=== PATIENT | male | born 1980 | race Caucasian/White ===

== ENCOUNTER → 2017-05-04 | Outpatient (CLI) | payer OTHER ==
--- NOTE | 2017-05-04 16:32 | MR ---
MRI THORACIC SPINE: 05/04/2017 CLINICAL HISTORY: Thoracic back pain for years with no recent injury or prior surgery. TECHNIQUE: Multiplanar, multisequence imaging of the cervical spine is performed without intravenous contrast. COMPARISON: None. FINDINGS: The thoracic and upper lumbar spinal cord is normal in course, caliber, and signal. Thoraci c vertebral alignment is anatomic. The vertebral body and intravertebral disk heights are normal. T here is multilevel mild intervertebral disc desiccation no adjacent signal alteration. The bone marro w signal intensity is within normal limits other than endplate changes of the anterior superior endpl ate of T12. T1-T2: There is a small right paracentral disc herniation without spinal canal stenosis or neuroforam inal narrowing. T2-T3: There is a small right paracentral disc herniation without spinal canal stenosis or neural for aminal narrowing. T3-T4: There is a small left eccentric broad-based disc bulge without neural foraminal narrowing or s syd canal stenosis. T4-T5: Mild disc desiccation. No spinal canal stenosis or neuroforaminal narrowing. T5-T6: There is a small right paracentral disc herniation without spinal canal stenosis or neural for aminal narrowing. T6-T12: Mild disc desiccation. No spinal canal stenosis or neural foraminal narrowing. IMPRESSION: 1. Small right paracentral disc herniations at T1-T2, T2-3, and T5-T6 without resultant neural forami nal narrowing or spinal canal stenosis. No abnormal spinal cord signal. 2. Mild multilevel degenerative disc disease throughout the thoracic spine.
== END | disposition home or self-care (01) ==
LOC: RADMRIMAIN 15:16
PROVIDERS: ATTEND Psychiatry & Neurology Pain Medicine
DX: M51.24 Other intervertebral disc displacement, thoracic region (principal); M51.34 Other intervertebral disc degeneration, thoracic region
CPT/HCPCS: 72146

== ENCOUNTER → 2017-05-17 | Outpatient (CLI) | payer OTHER ==
[2017-05-17 11:35] LABS: Calcium 9.5 mg/dL (8.4-10.2)
[2017-05-18 13:05] LABS: Vitamin A 66 ug/dL (38-106); Vitamin E (Alpha Tocopherol) 1199 ug/dL (500-1800)
[2017-05-19 02:26] LABS: Vitamin B1 56 ug/L (38-122)
[2017-05-19 13:13] LABS: Vitamin B6 49 ug/L (5-50)
[2017-05-21 09:28] LABS: Nicotinuric Acid None Detected
[2017-05-22 22:34] LABS: Vitamin K 395 pg/mL (80-1160)
== END | disposition home or self-care (01) ==
LOC: LABWHC1 10:52
PROVIDERS: ATTEND Psychiatry & Neurology Pain Medicine
DX: G89.4 Chronic pain syndrome (principal); Z79.899 Other long term (current) drug therapy
CPT/HCPCS: 36415; 82306; 82310; 82550; 83036; 83519; 83735; 84207; 84425; 84446; 84590; 84591; 84597

== ENCOUNTER 2018-04-02 15:34 | Emergency (ER) | payer OTHER ==
[2018-04-02 15:53] VITALS: RESP 18; TEMP 98.3
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
--- NOTE | 2018-04-02 16:30 | XR ---
EXAMINATION TYPE: XR knee 4V RT DATE OF EXAM: 04/02/2018 CLINICAL HISTORY: Right knee pain TECHNIQUE: Three views of the right knee are obtained. Fourth sunrise view was acquired. COMPARISON: None. FINDINGS: There is no acute fracture/dislocation evident in right knee. There is mild tricompartment joint space loss. There is prominent spur from anterior superior patella at distal quadriceps tendon attachment. Patellar articulation is satisfactory on sunrise view. The overlying soft tissue appear s unremarkable. IMPRESSION: As above
[2018-04-02 16:36] VITALS: BP 155/100; PULSE 73
== END 2018-04-02 17:07 | disposition home or self-care (01) ==
LOC: EC 15:34
DX: M25.561 Pain in right knee (principal); F17.200 Nicotine dependence, unspecified, uncomplicated; W18.09XA Striking against other object with subsequent fall, initial encounter
CPT/HCPCS: 99283

== ENCOUNTER 2018-06-03 13:08 | Emergency (ER) | payer OTHER ==
[2018-06-03 13:24] VITALS: TEMP 97.5
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
--- NOTE | 2018-06-03 14:17 | XR ---
Left hand and left elbow HISTORY: Left hand and elbow pain 3 views of the left hand and 3 views of the left elbow are submitted. Bone mineralization, joint spaces and alignment are maintained. No fracture or dislocation. No eviden t joint effusion. Enthesophyte present at the insertion of the triceps tendon, lucency at this level appears chronic and well corticated, correlate to exclude fracture. Soft tissue swelling noted over t he olecranon. IMPRESSION: Correlate to exclude olecranon bursitis.
[2018-06-03 14:21] VITALS: PULSE 70; RESP 18
[2018-06-03] MEDS ORDERED: KETOROLAC 60 MG/2 ML VIAL IM STA (14:31)
[2018-06-03 14:43] VITALS: BP 160/97
== END 2018-06-03 14:54 | disposition home or self-care (01) ==
LOC: EC 13:08
DX: M70.22 Olecranon bursitis, left elbow (principal); M79.642 Pain in left hand; M79.89 Other specified soft tissue disorders; F17.200 Nicotine dependence, unspecified, uncomplicated; W18.2XXA Fall in (into) shower or empty bathtub, initial encounter
CPT/HCPCS: 73080; 73130; 99283; 96372; J1885

== ENCOUNTER → 2018-09-30 | Outpatient (CLI) | payer OTHER ==
--- NOTE | 2018-10-01 13:19 | XR ---
Thoracic spine HISTORY: Pain 3 views of the thoracic spine, comparison to prior exam 05/30/2008 Thoracic vertebral bodies show preserved height and alignment, bone mineralization. There is multilev el spondylosis present. Disc spaces relatively maintained. IMPRESSION: Thoracic spondylosis. Consider thoracic MRI.
== END | disposition home or self-care (01) ==
LOC: RADXRMAIN 16:22
PROVIDERS: ATTEND Psychiatry & Neurology Neurology
DX: M47.814 Spondylosis without myelopathy or radiculopathy, thoracic region (principal)
CPT/HCPCS: 72072

== ENCOUNTER → 2018-12-10 | Outpatient (CLI) | payer OTHER | END | disposition home or self-care (01) | LOC: LABWHC1 10:55 | PROVIDERS: ATTEND Internal Medicine | DX: E29.1 Testicular hypofunction (principal) | CPT/HCPCS: 36415; 84402; 84403 ==

== ENCOUNTER 2020-08-06 12:42 | Emergency (ER) | payer OTHER ==
[2020-08-06 13:57] VITALS: BP 144/84; PULSE 78; RESP 20; TEMP 97.9
--- NOTE | 2020-08-06 14:28 | XR ---
EXAMINATION TYPE: XR chest 2V DATE OF EXAM: 08/06/2020 COMPARISON: None HISTORY: 40-year-old male cough and congestion TECHNIQUE: PA and lateral views FINDINGS: Heart normal size. Aorta and pulmonary vasculature within normal limits. No consolidation or pleural effusion. IMPRESSION: No acute cardiopulmonary process.
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
== END 2020-08-06 16:15 | disposition home or self-care (01) ==
LOC: EC 12:42
DX: J40 Bronchitis, not specified as acute or chronic (principal); F17.200 Nicotine dependence, unspecified, uncomplicated; E66.9 Obesity, unspecified; Z68.35 Body mass index [BMI] 35.0-35.9, adult; Z20.822 Contact with and (suspected) exposure to COVID-19
CPT/HCPCS: 71046; 87635; 99283

== ENCOUNTER → 2021-10-13 | Outpatient (CLI) | payer OTHER ==
--- NOTE | 2021-10-13 09:00 | XR ---
EXAMINATION TYPE: XR shoulder complete BILAT DATE OF EXAM: 10/13/2021 COMPARISON: NONE HISTORY: Pain TECHNIQUE: Three views are submitted. FINDINGS: Bilateral AC joint arthropathy. Spurring noted along the AC joint. There is calcification along the r ight humeral head which can be associated with calcific tendinosis. No acute fracture or dislocation. . IMPRESSION: 1. Bilateral AC joint arthropathy. 2. 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
== END | disposition home or self-care (01) ==
LOC: RADXRMAIN 08:21
PROVIDERS: ATTEND Physician Assistant
DX: M12.812 Other specific arthropathies, not elsewhere classified, left shoulder (principal); M12.811 Other specific arthropathies, not elsewhere classified, right shoulder; M25.511 Pain in right shoulder; M25.512 Pain in left shoulder